=== PATIENT | female | born 1935 | race Caucasian/White ===

== ENCOUNTER 2018-06-22 08:17 | Emergency (ER) | payer OTHER ==
[~2018-06-22] VITALS: Ht 137.2 cm; Wt 59.0 kg
[2018-06-22] MEDS ORDERED: GABAPENTIN100 MG (08:41)
[2018-06-22] MEDS ORDERED: ESTAZOLAM2 MG (08:41)
[2018-06-22] MEDS ORDERED: LOSARTAN-HCTZ1 EAC2 (08:42)
[2018-06-22] MEDS ORDERED: PROTONIX40 M1 (08:42)
[2018-06-22] MEDS ORDERED: FAMOTIDINE40 MG/5 ML (08:43)
[2018-06-22] MEDS ORDERED: GLIPIZIDE ER5 MG (08:44)
== END 2018-06-22 11:52 | disposition home or self-care (01) ==
LOC: ER 08:17
DX: K21.9 Gastro-esophageal reflux disease without esophagitis (principal)